=== PATIENT | male | born 1955 | race Caucasian/White ===

== ENCOUNTER 2023-12-04 16:40 | Inpatient (IN) ==
--- NOTE | 2023-12-04 17:00 | Emergency Department Note ---
Impression & Plan Syncope and collapse, Pulmonary embolism, Dizziness, Nausea ED Provider Note HISTORY OF PRESENT ILLNESS: Patient is a 68-year-old male presenting with syncope and collapse. Patient reports that he was outside getting ice cream with his family when he suddenly felt very lightheaded like he is going to pass out, the next thing he remembers he was on the ground and his was throwing water on his face to try to wake him up. Patient denies any chest pain or shortness of breath prior to the episode. He denies any bowel or bladder incontinence during the episode. He denies any chest pain or shortness of breath on arrival to the emergency department. He has a history of hyperlipidemia and is only on Lipitor. Denies any history of cardiac stents. Denies any anticoagulation or antiplatelet therapies. Denies any DVT or PE history. He denies any numbness or tingling in his extremities. He denies any abdominal pain. He does report nausea. Reports that since coming to, he has recurrent episodes of feeling nauseous and dizzy as if the room is spinning. ROS: as above PHYSICAL EXAM: Constitutional: Patient appears in no acute distress. HENT: Head: Normocephalic and atraumatic. Eyes: EOMI, PERRL Mouth/Throat: Mucous membranes moist. Neck: Trachea midline. Neck supple. Cervical collar in place. No midline cervical spine tenderness to palpation. Cardiovascular: RRR, No murmurs, rubs or gallops. Intact distal pulses. Pulmonary/Chest: No respiratory distress. Breath sounds clear and equal bilaterally. No wheezes or rales. No chest wall tenderness to palpation. Abdominal: Abdomen soft, no tenderness, rebound or guarding. Musculoskeletal: No edema, tenderness or deformity noted. Skin: Warm and dry. No rash, erythema, pallor or cyanosis Psychiatric: Appropriate mood and affect for situation. Neurological: Alert and keenly responsive. Facies symmetric. Able to raise eyebrows, close eyes, smile, puff mouth, stick out tongue, move tongue left and right and raise palate symmetrically. Able to shrug shoulders. PERRLA. SILT to forehead below eye and at jawline. Can hear soft noise bilaterally. Strength 5/5 in bilateral upper and lower extremities. SILT throughout bilateral upper and lower extremities. MDM: - Vitals signs stable - History obtained via patient. History as above. - Chronic conditions affecting care: HLD - Differential diagnoses include, but are not limited to: ACS; pneumonia; pulmonary embolism; dysrhythmia; electrolyte abnormality; dehydration - Order placed for continuous cardiac monitoring. At this time, monitor showed rate of 66 bpm with normal sinus rhythm, per my interpretation. - External medical records reviewed. - EKG interpreted by myself showed normal sinus rhythm. Rate 77 bpm. QT 396. Noted to have some T wave inversions in V1 to V3. - Laboratory workup interpreted by myself showed normal WBC; anemia (Hgb 13.1); normal PT/INR; stable electrolytes; normal troponin; normal CK; normal lipase; normal TSH; dimer elevated - CXR negative for pneumonia, per my interpretation - CT head wo contrast negative for acute pathology - CT cervical spine wo contrast negative for acute injury. - The patient's cervical collar was removed today. The patient's imaging was reviewed and the CT C-Spine was negative for acute injury. The patient was alert and oriented prior to his exam. On exam, he was non-tender to palpation midline and had full ROM without any neurologic deficits. The patient tolerated this procedure well. - Patient initially given 1L NS, 4 mg IV zofran and 25 mg PO antivert. However, he was still complaining of nausea and dizziness. 0.5 mg IV ativan ordered - Given elevated dimer in setting of syncope, CT PE was ordered. - CT PE showed segmental and subsegmental pulmonary emboli within the branch of the right upper, middle and lower lobe pulmonary arteries. - Heparin bolus and drip ordered. - Discussion was had with wrapper caser about patient's case and need for admission - Hospitalist, Dr. Dennis, consulted for admission - Patient admitted to [facility] service for further evaluation and management. I have personally spent 41 minutes of critical care time in the direct management of this patient. This includes bedside care, interpretation of diagnostic studies, and testing, discussion with consultants, patient, and family members, and other required patient management activities. This 41 minutes is in excess of all separately billable procedures. ASSESSMENT AND PLAN: Diagnosis: syncope and collapse; dizziness; nausea; pulmonary embolism Plan: admit Past Med/Surg History Problem List (Updated 12/04/23 @ 19:27 by Rubi Mcdaniel MD) Nausea (Acute) Dizziness (Acute) Pulmonary embolism (Acute) Syncope and collapse (Acute) Social History Smoking Status: Current some day smoker Tobacco Type: Cigars Feels Safe at Home: Yes Results & Data (ED) Vital Signs Vital Signs - 24 hr 12/04/23 16:48 12/04/23 16:48 12/04/23 16:55 Temperature 36.7 C Temperature Source Oral Pulse Rate 76 76 76 Pulse Rate [Left Finger] Respiratory Rate 28 H Respiratory Effort / Characteristics Non-Labored Spontaneous Respiratory Depth Normal Blood Pressure 129/71 Blood Pressure [Right Arm] Blood Pressure Mean 90 Blood Pressure Mean [Right Arm] Pulse Oximetry 94 94 Oxygen Delivery Method Room Air Room Air Sepsis Recent Fever Within 48 Hours No Sepsis New/Unexplained Change in Mental Status N/A Sepsis Action Taken by Nursing No Action Required 12/04/23 17:27 12/04/23 18:00 12/04/23 18:08 Temperature Temperature Source Pulse Rate Pulse Rate [Left Finger] 68 66 Respiratory Rate 24 20 Respiratory Effort / Characteristics Non-Labored Spontaneous Non-Labored Spontaneous Respiratory Depth Normal Normal Blood Pressure Blood Pressure [Right Arm] 138/68 141/81 H Blood Pressure Mean Blood Pressure Mean [Right Arm] 91 101 Pulse Oximetry 99 97 Oxygen Delivery Method Room Air Room Air Room Air Sepsis Recent Fever Within 48 Hours Sepsis New/Unexplained Change in Mental Status Sepsis Action Taken by Nursing Laboratory Data 12/04/23 16:59 12/04/23 16:59 Lab Results 12/04/23 Range/Units 16:59 WBC 9.05 (4.8-10.8) K/ul RBC 4.37 L (4.70-6.10) M/uL Hgb 13.1 L (14.0-18.0) g/dl Hct 40.1 L (42.0-52.0) % MCV 91.8 (80.0-100.0) fL MCH 30.0 (25.0-34.0) pg MCHC 32.7 (32.0-36.0) g/dL RDW Std Deviation 42.8 (36.4-46.3) fL RDW Coeff of Nba 12.7 (11.5-14.5) % Plt Count 227 (130-400) K/uL MPV 9.5 (9.4-12.4) fL Immature Gran % (Auto) 0.2 % Neut % (Auto) 49.0 % Lymph % (Auto) 38.8 % [place] % (Auto) 8.1 % Eos % (Auto) 3.6 % Baso % (Auto) 0.3 % Neut # (Auto) 4.43 (1.40-6.50) K/uL Lymph # (Auto) 3.51 H (1.20-3.40) K/uL [place] # (Auto) 0.73 H (0.11-0.59) K/uL Eos # (Auto) 0.33 (0.00-0.50) K/uL Baso # (Auto) 0.03 (0.00-0.20) K/uL Immature Gran # (Auto) 0.02 (0.01-0.20) K/uL PT 10.7 (9.0-12.0) Seconds INR 1.0 (0.9-1.1) D-Dimer 650 H* (0-500) ug/L FEU Sodium 138 (136-145) mmol/L Potassium 4.0 (3.5-5.1) mmol/L Chloride 106 (98-107) mmol/L Carbon Dioxide 24 (21-32) mmol/L Anion Gap 8 (3-11) BUN 25 H (6-23) mg/dl Creatinine 1.15 (0.6-1.4) mg/dl Est Cr Clr Drug Dosing 74.5 ml/min Est GFR ( Amer) 75.9 ml/min Est GFR (Non-Af Amer) 65.5 ml/min BUN/Creatinine Ratio 21.7 H (10-20) Glucose 128 H (70-99(Fasting)) mg/dl Calcium 8.6 (8.6-10.3) mg/dl Magnesium 1.9 (1.7-2.4) mg/dl Total Bilirubin 0.5 (0.2-1.0) mg/dl AST 20 (13-39) U/L ALT 17 (7-52) U/L Alkaline Phosphatase 64 (34-104) U/L Total Creatine Kinase 99 (30-223) U/L Troponin I High Sens 2.7 (0-20) pg/ml Total Protein 6.5 (6.0-8.3) gm/dl Albumin 3.9 (3.4-5.0) gm/dl Globulin 2.6 (2.5-4.0) gm/dl Albumin/Globulin Ratio 1.5 (0.9-2) Lipase 41 (11-82) U/L TSH 2.496 (0.300-4.500) uIu/ml Administered Medications Discontinued Medications Sodium Chloride (Nss) 1,000 mls @ 999 mls/hr IV .Q1H1M ARON Stop: 12/04/23 18:00 Last Infusion: 12/04/23 18:57 Dose: Infused Documented By: Admin: 12/04/23 17:08 Dose: 999 mls/hr Documented By: KATELIN Sodium Chloride (Nss) 1,000 mls @ 999 mls/hr IV .Q1H1M ONE Stop: 12/04/23 19:10 Last Admin: 12/04/23 18:21 Dose: 999 mls/hr Documented By: KATELIN Ioversol (Optiray 320 125ml) 117 ml IV ONCE ONE Stop: 12/04/23 18:41 Last Admin: 12/04/23 18:41 Dose: 117 ml Documented By: MICHAEL Meclizine HCl (Meclizine Hcl 25 Mg Tab) 25 mg PO NOW STA Stop: 12/04/23 18:11 Last Admin: 12/04/23 18:19 Dose: 25 mg Documented By: KATELIN Ondansetron HCl (Ondansetron Inj 2 Mg/Ml 2 Ml Vial) 4 mg IV NOW STA Stop: 12/04/23 16:57 Last Admin: 12/04/23 17:08 Dose: 4 mg Documented By: KATELIN Imaging Data Radiologist's Impression: Cervical Spine CT 12/04/23 16:56 CT SCAN OF THE CERVICAL SPINE CLINICAL HISTORY: Syncope. COMPARISON STUDY: No priors. TECHNIQUE: CT scan of the cervical spine is performed from the skull base to the upper thoracic spine. Images are reviewed in the axial, sagittal, and coronal planes. IV contrast was not administered for this examination. A dose lowering technique was utilized adhering to the principles of ALARA. FINDINGS: Skeletal structures: The skeletal structures are well mineralized. There is no evidence of fracture or subluxation involving the cervical spine. Vertebral body height and alignment are maintained. There is straightening of the cervical lordosis. Anterior osteophytes are seen throughout. The odontoid process and lateral masses are intact. The atlantoaxial articulation is preserved noting productive degenerative change. The spinous processes appear intact. There is mild/moderate multilevel cervical spondylosis. Uncovertebral and facet arthropathy contribute to neural foraminal narrowing at several levels. Intervertebral discs: The disc spaces are maintained. Central canal: Widely patent. Soft tissues: The prevertebral and paraspinous soft tissues are within normal limits. Calvarium: The visualized calvarium at the skull base appears intact. Brain parenchyma: Partially visualized brain parenchyma at the skull base is within normal limits. Sinuses and mastoids: There is mucosal thickening and an air-fluid level in the left maxillary antrum. Trace mucosal thickening is also seen in the sphenoid and right maxillary sinuses. The mastoid air cells are well pneumatized. Lung apices: Clear as visualized. IMPRESSION: There is no evidence of cervical spine fracture or subluxation. ACT 112: Negative or not required by law. Electronically signed by: Laureano Holguin M.D. 12/04/2023 5:48 PM Chest X-Ray 12/04/23 16:56 SINGLE VIEW CHEST CLINICAL HISTORY: Syncope FINDINGS: An AP, portable, upright chest radiograph is obtained. No prior studies are available for comparison at the time of dictation. The heart is enlarged. There is prominence pulmonary vascular congestion. There is elevation of the right diaphragm and bibasilar atelectasis. No large pleural effusion or pneumothorax is seen. The bony thorax is grossly intact. IMPRESSION: Cardiomegaly with pulmonary vascular congestion. ACT 112: Negative or not required by law. Electronically signed by: Laureano Holguin M.D. 12/04/2023 6:[address] 12/04/23 16:56 CT SCAN OF THE BRAIN WITHOUT IV CONTRAST CLINICAL HISTORY: Syncope COMPARISON STUDY: No priors. TECHNIQUE: Unenhanced axial CT scan of the brain is performed from the vertex to the skull base. A dose lowering technique was utilized adhering to the principles of ALARA. CT DOSE: 1189.79 mGy.cm FINDINGS: Brain parenchyma: There is minimal microangiopathic change. A 3 cm subarachnoid cyst is incidentally noted in the anterior left temporal fossa. There is no hemorrhage, mass effect, or evidence of acute territorial ischemia by CT criteria. Rodriguez-white matter differentiation is preserved. No extra-axial fluid collection is seen. Ventricles, sulci, cisterns: Normal in configuration. Intracranial vasculature: There is atherosclerotic calcification of the cavernous carotid arteries. Calvarium: Unremarkable. Sinuses and mastoids: There is evidence of previous paranasal sinus surgery. There is an air-fluid level in the partially visualized left maxillary antrum. Moderate mucosal thickening is noted in the ethmoid sinuses and the left frontal sinus. Trace mucosal thickening is seen in the left sphenoid sinus. The mastoid air cells are well pneumatized. Orbits: The bony orbits are grossly intact. IMPRESSION: There is no hemorrhage, mass effect, or evidence of acute territorial ischemia by CT criteria. ACT 112: Negative or not required by law. Electronically signed by: Laureano Holguin M.D. 12/04/2023 5:36 PM Chest CTA 12/04/23 18:10 CT ANGIOGRAM OF THE CHEST CLINICAL HISTORY: Syncope. COMPARISON STUDY: Chest x-ray dated 12/04/2023. TECHNIQUE: Following the IV administration of 117 cc of Optiray 320, CT angiogram of the chest was performed from the upper abdomen to the thoracic inlet utilizing the pulmonary embolus protocol. Images are reviewed in the axial, sagittal, and coronal planes. 3-D MIPS images are created and assessed. IV contrast was administered without complication. A dose lowering technique was utilized adhering to the principles of ALARA. CT DOSE: 873.18 mGy.cm FINDINGS: Thyroid: Imaged portions of the thyroid gland are normal in size and attenuation. Thoracic aorta: The thoracic aorta is normal in caliber and demonstrates bovine variant arch anatomy. No dissection is seen. Pulmonary vasculature: The pulmonary trunk is normal in caliber. There are subsegmental pulmonary emboli within a branch of the right middle lobe pulmonary artery seen on image #102. Segmental pulmonary emboli are seen within a branch of the right upper lobe pulmonary artery on image #141. Subsegmental pulmonary emboli are seen within branches of the right lower lobe pulmonary artery. No left-sided pulmonary emboli are clearly identified. Heart: The heart is enlarged and without pericardial effusion. Lungs and pleural spaces: Evaluation of the lung parenchyma is degraded by motion artifact. Dependent atelectasis is seen in both lungs. There is no airspace consolidation typical for pneumonia. No pleural effusion is identified. The trachea and central airways are clear. Mediastinum: There is no mediastinal lymphadenopathy. Brittany: Clear. Axillae: There is no axillary lymphadenopathy. Upper abdomen: There is a small hiatal hernia. Partially visualized upper abdominal viscera is otherwise within normal limits. Skeletal structures: No lytic or blastic bony lesions are seen. IMPRESSION: 1. Segmental and subsegmental pulmonary emboli are seen within branches of the right upper, middle, and lower lobe pulmonary arteries as above. 2. Cardiomegaly. 3. No airspace consolidation or pleural effusion is identified. 4. Additional findings as above. ACT 112: Negative or not required by law. Electronically signed by: Laureano Holguin M.D. 12/04/2023 6:51 PM Discharge Plan Visit Data Chief Complaint: Syncope Stated Complaint: SYNCOPAL EPISODE, HIT HEAD, DIZZY, DIAPHORETIC ED Provider: Rubi Mcdaniel Discharge Problem: Syncope and collapse, Pulmonary embolism, Dizziness, Nausea Forms Stand Alone Forms: [facility] Referrals Referrals: PCP,NO [Primary Care Provider] -
[2023-12-04] MEDS: ONDANSETRON INJ 2 MG/ML 2 ML VIAL IV STA (17:08)
[2023-12-04] MEDS: SODIUM CHLORIDE 0.9% 1,000 ML IV SCH (17:08)
[2023-12-04 17:16] LABS: Basophils # (auto) 0.03 K/uL (0.00-0.20); Basophils % (auto) 0.3 %; Eosinophils # (auto) 0.33 K/uL (0.00-0.50); Eosinophils % (auto) 3.6 %; Hematocrit (blood only) 40.1 % (42.0-52.0); Hemoglobin 13.1 g/dl (14.0-18.0); Immature Granulocytes # (auto) 0.02 K/uL (0.01-0.20); Immature Granulocytes % (auto) 0.2 %; Lymphocytes # (auto) 3.51 K/uL (1.20-3.40); Lymphocytes % (auto) 38.8 %; Mean Corpuscular Hgb Conc 32.7 g/dL (32.0-36.0); Mean Corpuscular Volume 91.8 fL (80.0-100.0); Mean Platelet Volume 9.5 fL (9.4-12.4); Monocytes # (auto) 0.73 K/uL (0.11-0.59); Monocytes % (auto) 8.1 %; Neutrophils # (auto) 4.43 K/uL (1.40-6.50); Platelet Count 227 K/uL (130-400); RDW Coefficient of Variation 12.7 % (11.5-14.5); RDW Standard Deviation 42.8 fL (36.4-46.3); Red Blood Count 4.37 M/uL (4.70-6.10); White Blood Count 9.05 K/ul (4.8-10.8)
[2023-12-04 17:33] LABS: Albumin Globulin Ratio 1.5 (0.9-2); Albumin Level 3.9 gm/dl (3.4-5.0); BUN Creatinine Ratio 21.7 (10-20); Bilirubin,Total 0.5 mg/dl (0.2-1.0); Calcium 8.6 mg/dl (8.6-10.3); Creatinine Clr Calc Pharmacy 74.5 ml/min; Est GFR (African American) 75.9 ml/min; Est GFR (Non-African American) 65.5 ml/min; Globulin 2.6 gm/dl (2.5-4.0); Magnesium 1.9 mg/dl (1.7-2.4); Total Protein 6.5 gm/dl (6.0-8.3)
[2023-12-04 17:38] LABS: Troponin I High Sensitivity 2.7 pg/ml (0-20)
--- NOTE | 2023-12-04 17:39 | CT Scan Report ---
CT SCAN OF THE BRAIN WITHOUT IV CONTRAST CLINICAL HISTORY: Syncope COMPARISON STUDY: No priors. TECHNIQUE: Unenhanced axial CT scan of the brain is performed from the vertex to the skull base. A d ose lowering technique was utilized adhering to the principles of ALARA. CT DOSE: 1189.79 mGy.cm FINDINGS: Brain parenchyma: There is minimal microangiopathic change. A 3 cm subarachnoid cyst is incidentally noted in the anterior left temporal fossa. There is no hemorrhage, mass effect, or evidence of acute territorial ischemia by CT criteria. Rodriguez-white matter differentiation is preserved. No extra-axial f luid collection is seen. Ventricles, sulci, cisterns: Normal in configuration. Intracranial vasculature: There is atherosclerotic calcification of the cavernous carotid arteries. Calvarium: Unremarkable. Sinuses and mastoids: There is evidence of previous paranasal sinus surgery. There is an air-fluid le iftikhar in the partially visualized left maxillary antrum. Moderate mucosal thickening is noted in the et hmoid sinuses and the left frontal sinus. Trace mucosal thickening is seen in the left sphenoid sinus . The mastoid air cells are well pneumatized. Orbits: The bony orbits are grossly intact. IMPRESSION: There is no hemorrhage, mass effect, or evidence of acute territorial ischemia by CT reinaldo weiss. ACT 112: Negative or not required by law. Electronically signed by: Laureano Holguin M.D. 12/04/2023 5:36 PM
[2023-12-04 17:47] LABS: Thyroid Stimulating Hormone 2.496 uIu/ml (0.300-4.500)
[2023-12-04 17:49] LABS: Prothrombin Time 10.7 Seconds (9.0-12.0)
--- NOTE | 2023-12-04 17:50 | CT Scan Report ---
CT SCAN OF THE CERVICAL SPINE CLINICAL HISTORY: Syncope. COMPARISON STUDY: No priors. TECHNIQUE: CT scan of the cervical spine is performed from the skull base to the upper thoracic spine . Images are reviewed in the axial, sagittal, and coronal planes. IV contrast was not administered fo r this examination. A dose lowering technique was utilized adhering to the principles of ALARA. FINDINGS: Skeletal structures: The skeletal structures are well mineralized. There is no evidence of fracture o r subluxation involving the cervical spine. Vertebral body height and alignment are maintained. There is straightening of the cervical lordosis. Anterior osteophytes are seen throughout. The odontoid pr ocess and lateral masses are intact. The atlantoaxial articulation is preserved noting productive deg enerative change. The spinous processes appear intact. There is mild/moderate multilevel cervical spo ndylosis. Uncovertebral and facet arthropathy contribute to neural foraminal narrowing at several lev els. Intervertebral discs: The disc spaces are maintained. Central canal: Widely patent. Soft tissues: The prevertebral and paraspinous soft tissues are within normal limits. Calvarium: The visualized calvarium at the skull base appears intact. Brain parenchyma: Partially visualized brain parenchyma at the skull base is within normal limits. Sinuses and mastoids: There is mucosal thickening and an air-fluid level in the left maxillary antrum . Trace mucosal thickening is also seen in the sphenoid and right maxillary sinuses. The mastoid air cells are well pneumatized. Lung apices: Clear as visualized. IMPRESSION: There is no evidence of cervical spine fracture or subluxation. ACT 112: Negative or not required by law. Electronically signed by: Laureano Holguin M.D. 12/04/2023 5:48 PM
[2023-12-04 18:03] LABS: D Dimer 650 ug/L FEU (0-500)
[2023-12-04] MEDS: MECLIZINE HCL 25 MG TAB PO STA (18:19)
[2023-12-04] MEDS: SODIUM CHLORIDE 0.9% 1,000 ML IV ONE (18:21)
[2023-12-04] MEDS: OPTIRAY 320 125ml IV ONE (18:41)
--- NOTE | 2023-12-04 18:53 | XRay Report ---
SINGLE VIEW CHEST CLINICAL HISTORY: Syncope FINDINGS: An AP, portable, upright chest radiograph is obtained. No prior studies are available for c omparison at the time of dictation. The heart is enlarged. There is prominence pulmonary vascular con gestion. There is elevation of the right diaphragm and bibasilar atelectasis. No large pleural effusi on or pneumothorax is seen. The bony thorax is grossly intact. IMPRESSION: Cardiomegaly with pulmonary vascular congestion. ACT 112: Negative or not required by law. Electronically signed by: Laureano Holguin M.D. 12/04/2023 6:51 PM
--- NOTE | 2023-12-04 18:53 | CT Scan Report ---
CT ANGIOGRAM OF THE CHEST CLINICAL HISTORY: Syncope. COMPARISON STUDY: Chest x-ray dated 12/04/2023. TECHNIQUE: Following the IV administration of 117 cc of Optiray 320, CT angiogram of the chest was pe rformed from the upper abdomen to the thoracic inlet utilizing the pulmonary embolus protocol. Images are reviewed in the axial, sagittal, and coronal planes. 3-D MIPS images are created and assessed. I V contrast was administered without complication. A dose lowering technique was utilized adhering to the principles of ALARA. CT DOSE: 873.18 mGy.cm FINDINGS: Thyroid: Imaged portions of the thyroid gland are normal in size and attenuation. Thoracic aorta: The thoracic aorta is normal in caliber and demonstrates bovine variant arch anatomy. No dissection is seen. Pulmonary vasculature: The pulmonary trunk is normal in caliber. There are subsegmental pulmonary emb lori within a branch of the right middle lobe pulmonary artery seen on image #102. Segmental pulmonary emboli are seen within a branch of the right upper lobe pulmonary artery on image #141. Subsegmental pulmonary emboli are seen within branches of the right lower lobe pulmonary artery. No left-sided pu lmonary emboli are clearly identified. Heart: The heart is enlarged and without pericardial effusion. Lungs and pleural spaces: Evaluation of the lung parenchyma is degraded by motion artifact. Dependent atelectasis is seen in both lungs. There is no airspace consolidation typical for pneumonia. No pleu ral effusion is identified. The trachea and central airways are clear. Mediastinum: There is no mediastinal lymphadenopathy. Brittany: Clear. Axillae: There is no axillary lymphadenopathy. Upper abdomen: There is a small hiatal hernia. Partially visualized upper abdominal viscera is otherw ise within normal limits. Skeletal structures: No lytic or blastic bony lesions are seen. IMPRESSION: 1. Segmental and subsegmental pulmonary emboli are seen within branches of the right upper, middle, a nd lower lobe pulmonary arteries as above. 2. Cardiomegaly. 3. No airspace consolidation or pleural effusion is identified. 4. Additional findings as above. ACT 112: Negative or not required by law. Electronically signed by: Laureano Holguin M.D. 12/04/2023 6:51 PM
[2023-12-04] MEDS: HEPARIN SODIUM/DEXTROSE 25,000 UNITS/500 ML BAG IV SCH (19:36)
[2023-12-04] MEDS: HEPARIN SOD (PORCINE) 1000 UNIT/ML IV ONE (19:37)
--- NOTE | 2023-12-04 19:40 | History & Physical Report ---
Date of Service December 04, 2023 Assessment & Plan (1) Pulmonary embolism: Plan: Patient with segmental and subsegmental PEs in RUL/RML/RLL. He did have a syncopal event prior to arrival - possibly secondary to PE. No saddle. No evidence of heart strain noted on CT imaging. Presently hemodynamically stable with HR of 75, BP of 151/102. Adequate oxygenation on room air. PESI Score = 77 (Class II, Low risk). Shock index= 0.5, normal. No prior history of VTE. No obvious risk factors aside from recent drive from [place]. -Admit to PCU -Continue heparin gtt -Transition to NOAC in AM Patient is scheduled to fly to [place] next week 12/10/23 - encouraged him to cancel this trip due to recent PE (2) Syncope and collapse: Plan: Patient with syncope, head trauma - not on blood thinners or antiplatelets. He did have a very brief prodrome of dizziness and feeling warm/flushed. PEs as above - not certain that this was the cause of his syncopal event. Labs do suggest some degree of dehydration with elevated urine SG, and ketones as well as BUN. -Telemetry monitoring -Check 2D echo -Fall precautions Plan CHRONIC MEDICAL CONDITIONS: Hyperlipidemia - chronic, stable -Continue Atorvastatin 10mg po daily F/E/N - s/p 2L NSS in the ER, saline lock, electrolytes WNL, Regular diet as tolerated Ppx - Heparin gtt for treatment of PE Code - Full per discussion with patient Dispo - Admit to PCU History of Present Illness Chief Complaint: syncope Primary Care Provider: NO PCP 68yo male with history of hyperlipidemia presenting with syncope. [place] [employer] [place] this [place] when he became acutely dizzy and hot and fell backwards onto the grass, striking his posterior head. He was out several moments then regained consciousness. He denies fever, chills, chest pain, palpitations, cough, SOB, abdominal pain, diarrhea or constipation. He does have some nausea with vomiting as well as some blurry vision and dizziness associated with positional changes and head movement which is slightly improved from earlier. Imaging and workup as below. Labs revealed elevated D-dimer at 650 and CTA of the chest with segmental and subsegmental PE within the branches of the RUL, RML and RLL pulmonary arteries. Patient is active and independent. He swims 1 mile 3 times weekly. He has no prior history of VTE. No known family history of VTE or hypercoagulability. No recent surgery or trauma. He did drive two hours from [place] days ago otherwise no extended periods of immobility. No leg pain or cramping. He is UTD with his colonoscopies. In the ER he is afebrile, HD stable ER Course: Heparin 7000u bolus and drip Meclizine 25mg PO Zofran 4mg IV NSS x 2L Allergies Allergy/AdvReac Type Severity Reaction Status Date / Time No Known Allergies Allergy Unverified 12/04/23 19:50 Home Medications Medication Instructions Recorded Confirmed Type acetaminophen 500 mg tablet 500 mg PO Q6H PRN Pain 12/04/23 12/04/23 History atorvastatin 10 mg tablet 10 mg PO HS 12/04/23 12/04/23 History Past Med/Surg History Problem List (Updated 12/04/23 @ 21:24 by Kristi Dennis DO) Nausea (Acute) Dizziness (Acute) Pulmonary embolism (Acute) Syncope and collapse (Acute) Medical History (Updated 12/04/23 @ 21:24 by Kristi Dennis DO) Hyperlipidemia Surgical History (Updated 12/04/23 @ 21:25 by Kristi Dennis DO) History of wisdom tooth extraction History of sinus surgery Family History (Updated 12/04/23 @ 21:25 by Kristi Dennis DO) Other Cancer Social History (Updated 12/04/23 @ 21:25 by Kristi Dennis DO) Smoking Status: Current some day smoker Tobacco Type: Cigars Hx Alcohol Use: Yes (social use) Hx Substance Use: No Feels Safe at Home: Yes Review of Systems 2 Review of Systems: All systems reviewed & are unremarkable except as noted in HPI & below Physical Exam Physical Exam: General: patient resting comfortably, NAD, non-toxic in appearance, AA&O x 4 Skin: warm, dry, intact, no rashes or lesions HEENT: NC/AT, PERRL, EOMI, anicteric sclera, conjunctiva without injection, external ear normal to inspection and nontender, nares patent, moist mucus membranes, dentition intact, no oropharyngeal lesions, neck supple, trachea midline, no LAD, no thyromegaly, no JVD, no nystagmus, no posterior neck pain Heart: +S1/S2, regular with respiratory variation, no m/r/g Lungs: equal air entry bilaterally, no rales/rhonchi/wheezes Abd: +BS, soft, NT/ND, no masses/organomegaly/ascites Ext: warm, 2+ pulses in UE/LE bilaterally, no clubbing/cyanosis or edema Neuro: nonfocal, patient AA&O x 4, speech intact, no facial droop, moving all extremities on command with equal strength 5/5 Results & Data Results & Data Vital Signs (Past 12 Hours) Vital Signs Temp Pulse Pulse Resp BP BP Pulse Ox 12/04/23 18:08 66 20 141/81 H 97 12/04/23 18:00 68 24 138/68 99 12/04/23 17:27 12/04/23 16:55 76 12/04/23 16:48 76 94 12/04/23 16:48 36.7 C 76 28 H 129/71 94 O2 Del Method 12/04/23 18:08 Room Air 12/04/23 18:00 Room Air 12/04/23 17:27 Room Air 12/04/23 16:55 12/04/23 16:48 Room Air 12/04/23 16:48 Room Air Laboratory Results Laboratory Results WBC 9.05 K/ul (4.8-10.8) 12/04/23 16:59 RBC 4.37 M/uL (4.70-6.10) L 12/04/23 16:59 Hgb 13.1 g/dl (14.0-18.0) L 12/04/23 16:59 Hct 40.1 % (42.0-52.0) L 12/04/23 16:59 MCV 91.8 fL (80.0-100.0) 12/04/23 16:59 MCH 30.0 pg (25.0-34.0) 12/04/23 16:59 MCHC 32.7 g/dL (32.0-36.0) 12/04/23 16:59 RDW Std Deviation 42.8 fL (36.4-46.3) 12/04/23 16:59 RDW Coeff of Nba 12.7 % (11.5-14.5) 12/04/23 16:59 Plt Count 227 K/uL (130-400) 12/04/23 16:59 MPV 9.5 fL (9.4-12.4) 12/04/23 16:59 Immature Gran % (Auto) 0.2 % 12/04/23 16:59 Neut % (Auto) 49.0 % 12/04/23 16:59 Lymph % (Auto) 38.8 % 12/04/23 16:59 Otero % (Auto) 8.1 % 12/04/23 16:59 Eos % (Auto) 3.6 % 12/04/23 16:59 Baso % (Auto) 0.3 % 12/04/23 16:59 Neut # (Auto) 4.43 K/uL (1.40-6.50) 12/04/23 16:59 Lymph # (Auto) 3.51 K/uL (1.20-3.40) H 12/04/23 16:59 Otero # (Auto) 0.73 K/uL (0.11-0.59) H 12/04/23 16:59 Eos # (Auto) 0.33 K/uL (0.00-0.50) 12/04/23 16:59 Baso # (Auto) 0.03 K/uL (0.00-0.20) 12/04/23 16:59 Immature Gran # (Auto) 0.02 K/uL (0.01-0.20) 12/04/23 16:59 PT 10.7 Seconds (9.0-12.0) 12/04/23 16:59 INR 1.0 (0.9-1.1) 12/04/23 16:59 D-Dimer 650 ug/L FEU (0-500) H* 12/04/23 16:59 Sodium 138 mmol/L (136-145) 12/04/23 16:59 Potassium 4.0 mmol/L (3.5-5.1) 12/04/23 16:59 Chloride 106 mmol/L (98-107) 12/04/23 16:59 Carbon Dioxide 24 mmol/L (21-32) 12/04/23 16:59 Anion Gap 8 (3-11) 12/04/23 16:59 BUN 25 mg/dl (6-23) H 12/04/23 16:59 Creatinine 1.15 mg/dl (0.6-1.4) 12/04/23 16:59 Est Cr Clr Drug Dosing 74.5 ml/min 12/04/23 16:59 Est GFR ( Amer) 75.9 ml/min 12/04/23 16:59 Est GFR (Non-Af Amer) 65.5 ml/min 12/04/23 16:59 BUN/Creatinine Ratio 21.7 (10-20) H 12/04/23 16:59 Glucose 128 mg/dl (70-99(Fasting)) H 12/04/23 16:59 Calcium 8.6 mg/dl (8.6-10.3) 12/04/23 16:59 Magnesium 1.9 mg/dl (1.7-2.4) 12/04/23 16:59 Total Bilirubin 0.5 mg/dl (0.2-1.0) 12/04/23 16:59 AST 20 U/L (13-39) 12/04/23 16:59 ALT 17 U/L (7-52) 12/04/23 16:59 Alkaline Phosphatase 64 U/L (34-104) 12/04/23 16:59 Total Creatine Kinase 99 U/L (30-223) 12/04/23 16:59 Troponin I High Sens 2.7 pg/ml (0-20) 12/04/23 16:59 Total Protein 6.5 gm/dl (6.0-8.3) 12/04/23 16:59 Albumin 3.9 gm/dl (3.4-5.0) 12/04/23 16:59 Globulin 2.6 gm/dl (2.5-4.0) 12/04/23 16:59 Albumin/Globulin Ratio 1.5 (0.9-2) 12/04/23 16:59 Lipase 41 U/L (11-82) 12/04/23 16:59 TSH 2.496 uIu/ml (0.300-4.500) 12/04/23 16:59 Urine Color Yellow 12/04/23 20:53 Urine Appearance Clear (Clear) 12/04/23 20:53 Urine pH 6.0 (4.5-7.5) 12/04/23 20:53 Ur Specific [place] 1.036 (1.000-1.030) H 12/04/23 20:53 Urine Protein Negative (Negative) 12/04/23 20:53 Urine Glucose (UA) Negative (Negative) 12/04/23 20:53 Urine Ketones 1+ (Negative) H 12/04/23 20:53 Urine Blood Negative (Negative) 12/04/23 20:53 Urine Nitrite Negative (Negative) 12/04/23 20:53 Urine Bilirubin Negative (Negative) 12/04/23 20:53 Urine Urobilinogen Negative (Negative) 12/04/23 20:53 Ur Leukocyte Esterase Negative (Negative) 12/04/23 20:[address] 12/04/23 16:56 CT SCAN OF THE CERVICAL SPINE CLINICAL HISTORY: Syncope. COMPARISON STUDY: No priors. TECHNIQUE: CT scan of the cervical spine is performed from the skull base to the upper thoracic spine. Images are reviewed in the axial, sagittal, and coronal planes. IV contrast was not administered for this examination. A dose lowering technique was utilized adhering to the principles of ALARA. FINDINGS: Skeletal structures: The skeletal structures are well mineralized. There is no evidence of fracture or subluxation involving the cervical spine. Vertebral body height and alignment are maintained. There is straightening of the cervical lordosis. Anterior osteophytes are seen throughout. The odontoid process and lateral masses are intact. The atlantoaxial articulation is preserved noting productive degenerative change. The spinous processes appear intact. There is mild/moderate multilevel cervical spondylosis. Uncovertebral and facet arthropathy contribute to neural foraminal narrowing at several levels. Intervertebral discs: The disc spaces are maintained. Central canal: Widely patent. Soft tissues: The prevertebral and paraspinous soft tissues are within normal limits. Calvarium: The visualized calvarium at the skull base appears intact. Brain parenchyma: Partially visualized brain parenchyma at the skull base is within normal limits. Sinuses and mastoids: There is mucosal thickening and an air-fluid level in the left maxillary antrum. Trace mucosal thickening is also seen in the sphenoid and right maxillary sinuses. The mastoid air cells are well pneumatized. Lung apices: Clear as visualized. IMPRESSION: There is no evidence of cervical spine fracture or subluxation. ACT 112: Negative or not required by law. Electronically signed by: Laureano Holguin M.D. 12/04/2023 5:48 PM Chest X-Ray 12/04/23 16:56 SINGLE VIEW CHEST CLINICAL HISTORY: Syncope FINDINGS: An AP, portable, upright chest radiograph is obtained. No prior studies are available for comparison at the time of dictation. The heart is enlarged. There is prominence pulmonary vascular congestion. There is elevation of the right diaphragm and bibasilar atelectasis. No large pleural effusion or pneumothorax is seen. The bony thorax is grossly intact. IMPRESSION: Cardiomegaly with pulmonary vascular congestion. ACT 112: Negative or not required by law. Electronically signed by: Laureano Holguin M.D. 12/04/2023 6:[address] 12/04/23 16:56 CT SCAN OF THE BRAIN WITHOUT IV CONTRAST CLINICAL HISTORY: Syncope COMPARISON STUDY: No priors. TECHNIQUE: Unenhanced axial CT scan of the brain is performed from the vertex to the skull base. A dose lowering technique was utilized adhering to the principles of ALARA. CT DOSE: 1189.79 mGy.cm FINDINGS: Brain parenchyma: There is minimal microangiopathic change. A 3 cm subarachnoid cyst is incidentally noted in the anterior left temporal fossa. There is no hemorrhage, mass effect, or evidence of acute territorial ischemia by CT criteria. Rodriguez-white matter differentiation is preserved. No extra-axial fluid collection is seen. Ventricles, sulci, cisterns: Normal in configuration. Intracranial vasculature: There is atherosclerotic calcification of the cavernous carotid arteries. Calvarium: Unremarkable. Sinuses and mastoids: There is evidence of previous paranasal sinus surgery. There is an air-fluid level in the partially visualized left maxillary antrum. Moderate mucosal thickening is noted in the ethmoid sinuses and the left frontal sinus. Trace mucosal thickening is seen in the left sphenoid sinus. The mastoid air cells are well pneumatized. Orbits: The bony orbits are grossly intact. IMPRESSION: There is no hemorrhage, mass effect, or evidence of acute territorial ischemia by CT criteria. ACT 112: Negative or not required by law. Electronically signed by: Laureano Holguin M.D. 12/04/2023 5:36 PM Chest CTA 12/04/23 18:10 CT ANGIOGRAM OF THE CHEST CLINICAL HISTORY: Syncope. COMPARISON STUDY: Chest x-ray dated 12/04/2023. TECHNIQUE: Following the IV administration of 117 cc of Optiray 320, CT angiogram of the chest was performed from the upper abdomen to the thoracic inlet utilizing the pulmonary embolus protocol. Images are reviewed in the axial, sagittal, and coronal planes. 3-D MIPS images are created and assessed. IV contrast was administered without complication. A dose lowering technique was utilized adhering to the principles of ALARA. CT DOSE: 873.18 mGy.cm FINDINGS: Thyroid: Imaged portions of the thyroid gland are normal in size and attenuation. Thoracic aorta: The thoracic aorta is normal in caliber and demonstrates bovine variant arch anatomy. No dissection is seen. Pulmonary vasculature: The pulmonary trunk is normal in caliber. There are subsegmental pulmonary emboli within a branch of the right middle lobe pulmonary artery seen on image #102. Segmental pulmonary emboli are seen within a branch of the right upper lobe pulmonary artery on image #141. Subsegmental pulmonary emboli are seen within branches of the right lower lobe pulmonary artery. No left-sided pulmonary emboli are clearly identified. Heart: The heart is enlarged and without pericardial effusion. Lungs and pleural spaces: Evaluation of the lung parenchyma is degraded by motion artifact. Dependent atelectasis is seen in both lungs. There is no airspace consolidation typical for pneumonia. No pleural effusion is identified. The trachea and central airways are clear. Mediastinum: There is no mediastinal lymphadenopathy. Brittany: Clear. Axillae: There is no axillary lymphadenopathy. Upper abdomen: There is a small hiatal hernia. Partially visualized upper abdominal viscera is otherwise within normal limits. Skeletal structures: No lytic or blastic bony lesions are seen. IMPRESSION: 1. Segmental and subsegmental pulmonary emboli are seen within branches of the right upper, middle, and lower lobe pulmonary arteries as above. 2. Cardiomegaly. 3. No airspace consolidation or pleural effusion is identified. 4. Additional findings as above. ACT 112: Negative or not required by law. Electronically signed by: Laureano Holguin M.D. 12/04/2023 6:51 PM ECG Additional Comments: EKG per my interpretation reveals NSR at 77 bpm, JA=147, QRS=86, SOl=815, some T abnormalities in anterior leads Code Status & VTE Plan VTE Prophylaxis Plan VTE Prophylaxis will be ordered: Yes PG Care Time/CCT Total # of Minutes Spent Total Time Spent with Patient: Total time spent is greater than 50% in coordination of care (as documented) at patient's floor/unit and/or counseling patient: Coding Level of Care Code 06690 INT INP/OBS CARE MIN Diagnoses Pulmonary embolism I26.99 Syncope and collapse R55
[2023-12-04] MEDS: Heparin IV Adult Wt-Based Standard w/ INITIAL Bolus Protocol IV STA (19:41)
[2023-12-04] MEDS: LORazepam 1 MG/1 ML SYR ED Inj Use IV STA ×2 (19:42)
[2023-12-04] MEDS ORDERED: HEPARIN SOD (PORCINE) 1000 UNIT/ML IV ONE (20:15)
[2023-12-04 21:14] LABS: Appearance Urine Clear (Clear); Bilirubin Urine Negative (Negative); Blood Urine Negative (Negative); Color Urine Yellow; Glucose Urine UA Negative (Negative); Ketones Urine 1+ (Negative); Leukocyte Esterase Urine Negative (Negative); Nitrite Urine Negative (Negative); Protein Urine Negative (Negative); Specific Gravity Urine 1.036 (1.000-1.030); Urobilinogen Urine Negative (Negative)
[2023-12-04] MEDS ORDERED: ACETAMINOPHEN 325 MG TAB PO PRN (21:42)
[2023-12-04] MEDS ORDERED: ONDANSETRON INJ 2 MG/ML 2 ML VIAL IV PRN (21:42)
[2023-12-05 02:30] LABS: ANTI-Xa, UFH(UnfractionatedHep 0.73 IU/ml (0.3-0.7)
[2023-12-05 06:26] LABS: Hematocrit (blood only) 38.2 % (42.0-52.0); Hemoglobin 12.6 g/dl (14.0-18.0); Mean Corpuscular Hemoglobin 30.3 pg (25.0-34.0); Mean Corpuscular Volume 91.8 fL (80.0-100.0); Mean Platelet Volume 9.9 fL (9.4-12.4); Platelet Count 195 K/uL (130-400); RDW Coefficient of Variation 12.6 % (11.5-14.5); RDW Standard Deviation 42.1 fL (36.4-46.3); Red Blood Count 4.16 M/uL (4.70-6.10); White Blood Count 7.16 K/ul (4.8-10.8)
[2023-12-05 06:33] LABS: Albumin Level 3.6 gm/dl (3.4-5.0); BUN Creatinine Ratio 17.3 (10-20); Bilirubin Direct 0.2 mg/dl (0-0.2); Bilirubin,Total 0.8 mg/dl (0.2-1.0); Calcium 8.3 mg/dl (8.6-10.3); Creatinine Clr Calc Pharmacy 88.3 ml/min; Est GFR (African American) 92.1 ml/min; Est GFR (Non-African American) 79.5 ml/min; Potassium 3.8 mmol/L (3.5-5.1); Total Protein 5.8 gm/dl (6.0-8.3)
[2023-12-05 09:12] LABS: ANTI-Xa, UFH(UnfractionatedHep 0.52 IU/ml (0.3-0.7)
[2023-12-05] MEDS: ATORVASTATIN 10 MG TAB PO SCH ×2 (10:12→21:16)
[2023-12-05] MEDS ORDERED: Nursing to Pharmacy Communication SCH (10:15)
--- NOTE | 2023-12-05 11:11 | Hospitalist Progress Note ---
Date of Service December 05, 2023 Assessment & Plan (1) Pulmonary embolism: Plan: Appears to be provoked from a prolonged car ride from [place]. Cardiac echo is pending along with venous Doppler studies of both legs. Heparin drip has been switched over to Eliquis. Fortunately he is not requiring oxygen. He does not need a hypercoagulable workup at this time since he has no previous history of venous thrombosis. (2) Syncope and collapse: Plan: The patient had a syncopal episode probably at the time of the PE. He struck his head but there was no significant findings on his CT scan. He does have transient dizziness with movement but no overt vertigo. Supportive care at this time. (3) Hyperlipidemia: Plan: Stable. Continue statin therapy Plan Hopeful discharge to home tomorrow, December 05 Admission and Anticipated Discharge Date Admission Date: December 04, 2023 Subjective Alert and oriented. Fortunately, he is not requiring any oxygen. He does have some dizziness with movement from the closed head injury suffered when he had a syncopal episode and fell. Heparin drip has been switched over to oral Eliquis. Venous Doppler studies of both legs pending along with cardiac echo. This appears to be a provoked PE from prolonged driving from [place] to the [place]. Hopefully he can go home tomorrow, December 05 Review of Systems 2 Review of Systems: Constitutional-no fever or chills. Transient dizziness with head movement ENT-no blurred vision, no double vision, no epistaxis, no sore throat Respiratory-no cough, no wheezing, no shortness of breath Cardiac-no palpitations, no chest pain, no syncope GI-no nausea, vomiting, diarrhea, melena, hematochezia -no urinary retention, no urinary incontinence, no dysuria, no hematuria Musculoskeletal-no joint pain, no muscle tenderness Skin-no bruising, no rashes, no pruritus Neuro-no isolated weakness, no paresthesia. Transient dizziness with head movement Psych-no depression, no anxiety Physical Exam 2 Physical Exam: General-alert and oriented x3, no fever, no chills HEENT-head atraumatic and normocephalic, pupils equal and reactive to light, extraocular muscles intact Neck-no lymphadenopathy or thyromegaly, trachea midline Chest-clear to auscultation. No rales, wheezing or rhonchi Cardiac-regular rate and rhythm, normal S1 and S2 Abdomen-normal bowel sounds, no hepatosplenomegaly Extremities-no cyanosis, clubbing, or edema Neuro-cranial nerves II through XII intact, motor and sensory function within normal limits, strength symmetrical, no focal deficits Psych-normal affect, normal mood Results & Data Results & Data Vital Signs (Past 12 Hours) Vital Signs Temp Pulse Pulse Resp BP Pulse Ox O2 Del Method 12/05/23 10:11 36.8 C 86 23 141/83 H 97 Room Air 12/05/23 07:58 36.7 C 51 L 22 126/76 95 Room Air 12/05/23 07:26 55 L 12/05/23 03:55 36.4 C L 60 18 97 Room Air Laboratory Results 12/05/23 05:43 12/05/23 05:43 PG Care Time/CCT Total # of Minutes Spent Total Time Spent with Patient: Total time spent is greater than 50% in coordination of care (as documented) at patient's floor/unit and/or counseling patient: Coding Level of Care Code 77936 SUB INP/OBS CARE 3/50MIN Diagnoses Pulmonary embolism I26.99 Syncope and collapse R55 Hyperlipidemia E78.5
[2023-12-05] MEDS: APIXABAN 5 MG TABLET PO SCH (11:17)
--- NOTE | 2023-12-05 11:27 | Ultrasound Report ---
ULTRASOUND BILATERAL LOWER EXTREMITY VENOUS CLINICAL HISTORY: Pulmonary embolus. COMPARISON STUDY: No priors. TECHNIQUE: Real-time, grayscale, and color Doppler sonography of the deep veins of the right and left lower extremity was performed from the inguinal crease to the calf. Compression and augmentation wer e utilized. FINDINGS: There is no sonographic evidence of deep venous thrombosis identified in the right or left lower extremity. The common femoral, superficial femoral, and popliteal veins are patent and normally compressible bilaterally. The greater saphenous vein and the profunda femoris vein at the junction w ith the common femoral vein are clear in both legs. The visualized calf veins are patent bilaterally. IMPRESSION: There is no sonographic evidence of deep venous thrombosis identified in the right or lef t lower extremity. ACT 112: Negative or not required by law. Electronically signed by: Laureano Holguin M.D. 12/05/2023 11:26 AM
--- NOTE | 2023-12-05 11:47 | Electrocardiogram Report ---
Test Reason : Blood Pressure : / mmHG Vent. Rate : 077 BPM Atrial Rate : 077 BPM P-R Int : 170 ms QRS Dur : 086 ms QT Int : 396 ms P-R-T Axes : 025 -25 032 degrees QTc Int : 448 ms Normal sinus rhythm T wave abnormality, consider anterior ischemia Abnormal ECG No previous ECGs available Confirmed by Duane Auguste ([id number]) on 12/05/2023 11:47:14 AM Referred By: REFERRED SELF Confirmed By:Duane Auguste
--- NOTE | 2023-12-05 12:08 | XCELERA ---
[id number]
[2023-12-06 06:19] LABS: Basophils # (auto) 0.02 K/uL (0.00-0.20); Basophils % (auto) 0.3 %; Eosinophils # (auto) 0.35 K/uL (0.00-0.50); Eosinophils % (auto) 5.6 %; Hematocrit (blood only) 40.4 % (42.0-52.0); Hemoglobin 13.1 g/dl (14.0-18.0); Immature Granulocytes # (auto) 0.01 K/uL (0.01-0.20); Immature Granulocytes % (auto) 0.2 %; Lymphocytes # (auto) 1.98 K/uL (1.20-3.40); Lymphocytes % (auto) 31.9 %; Mean Corpuscular Hemoglobin 29.9 pg (25.0-34.0); Mean Corpuscular Hgb Conc 32.4 g/dL (32.0-36.0); Mean Corpuscular Volume 92.2 fL (80.0-100.0); Mean Platelet Volume 9.7 fL (9.4-12.4); Monocytes # (auto) 0.61 K/uL (0.11-0.59); Monocytes % (auto) 9.8 %; Neutrophils # (auto) 3.23 K/uL (1.40-6.50); Neutrophils % (auto) 52.2 %; Platelet Count 193 K/uL (130-400); RDW Coefficient of Variation 12.9 % (11.5-14.5); RDW Standard Deviation 43.8 fL (36.4-46.3); Red Blood Count 4.38 M/uL (4.70-6.10)
[2023-12-06 06:27] LABS: BUN Creatinine Ratio 14.4 (10-20); Calcium 8.5 mg/dl (8.6-10.3); Creatinine Clr Calc Pharmacy 69.3 ml/min; Est GFR (African American) 68.6 ml/min; Est GFR (Non-African American) 59.2 ml/min
--- NOTE | 2023-12-06 09:54 | Discharge Summary ---
Date of Service December 06, 2023 Admission HPI Per Admitting Provider 68yo male with history of hyperlipidemia presenting with syncope. Patient is visiting from [place]. [place] when he became acutely dizzy and hot and fell backwards onto the grass, striking his posterior head. He was out several moments then regained consciousness. He denies fever, chills, chest pain, palpitations, cough, SOB, abdominal pain, diarrhea or constipation. He does have some nausea with vomiting as well as some blurry vision and dizziness associated with positional changes and head movement which is slightly improved from earlier. Imaging and workup as below. Labs revealed elevated D-dimer at 650 and CTA of the chest with segmental and subsegmental PE within the branches of the RUL, RML and RLL pulmonary arteries. Patient is active and independent. He swims 1 mile 3 times weekly. He has no prior history of VTE. No known family history of VTE or hypercoagulability. No recent surgery or trauma. He did drive two hours from [place] several days ago otherwise no extended periods of immobility. No leg pain or cramping. He is UTD with his colonoscopies. In the ER he is afebrile, HD stable ER Course: Heparin 7000u bolus and drip Meclizine 25mg PO Zofran 4mg IV NSS x 2L Principal Diagnosis Provoked to multiple right lung pulmonary emboli, syncope with fall, closed head injury with dizziness Discharge Exam General-alert and oriented x3, no fever, no chills HEENT-head atraumatic and normocephalic, pupils equal and reactive to light, extraocular muscles intact Neck-no lymphadenopathy or thyromegaly, trachea midline Chest-clear to auscultation. No rales, wheezing or rhonchi Cardiac-regular rate and rhythm, normal S1 and S2 Abdomen-normal bowel sounds, no hepatosplenomegaly Extremities-no cyanosis, clubbing, or edema Neuro-cranial nerves II through XII intact, motor and sensory function within normal limits, strength symmetrical, no focal deficits Psych-normal affect, normal mood Discharge Data Allergies Allergy/AdvReac Type Severity Reaction Status Date / Time No Known Allergies Allergy Unverified 12/04/23 19:50 Consultations 12/04/23 19:27 ED Decision to Admit Stat Ordered Studies 12/04/23 16:56 CT cervical spine wo con Stat CT head/brain wo con Stat 12/04/23 18:10 CT for pulmonary embolism PE [CT angio chest PE protocol] Stat 12/05/23 07:47 US venous doppler [facility] Urgent Hospital Course (1) Pulmonary embolism: Appears to be provoked from a prolonged car ride from [place]. Cardiac echo report noted. No significant findings. Venous Doppler studies of both legs negative for DVT. Heparin drip has been switched over to Eliquis. Fortunately he is not requiring oxygen. He does not need a hypercoagulable workup at this time since he has no previous history of venous thrombosis. (2) Syncope and collapse: The patient had a syncopal episode probably at the time of the PE. He struck his head but there was no significant findings on his CT scan. He did have transient dizziness with movement but no overt vertigo. This has now resolved. (3) Hyperlipidemia: Stable. Continue statin therapy Plan Home today, December 05, on Eliquis Total Time Total Time Spent Total Time Spent (In Minutes): 45 minutes Discharge Plan Discharge Items Patient Disposition: Home - Self-Care Reason For Visit: SYNCOPE Discharge Diagnosis: Provoked PE right lung, syncope, mechanical fall with closed head injury and dizziness Activity: Resume your previous activity Non-emergency contact: Primary Care Provider Call non-emergency contact if: you have any medication questions and your symptoms worsen Follow-up/Referrals: Jairon Lambert MD [Primary Care Provider] - Diet: Regular and Heart Healthy Addtl Attending Provider Instructions: Take Eliquis 10 mg twice daily for 1 week then 5 mg twice daily after that. See primary care provider soon as possible Pending Studies at Discharge: No Stand-Alone Forms: [facility], Smoking Cessation Medications and DC Order Prescriptions: New Eliquis 5 mg Tablet 10 mg PO BID Qty: 0 0RF Continued atorvastatin 10 mg Tablet 10 mg PO HS acetaminophen [Tylenol Ex Str Rapid Release] 500 mg Tablet 500 mg PO Q6H PRN (Reason: Pain) Discharge Orders: Discharge Order (Routine); Ordered 12/06/23 Ordered By: Seferino Perry Admission Data Admit Date/Time: 12/04/23 19:38 Attending Provider: Seferino Perry Admit Provider: Kristi Dennis Primary Care Provider: Jairon Lambert Other Providers: Kristi Dennis Coding Level of Care Code 91792 INP/OBS DISCH >30 MIN Diagnoses Pulmonary embolism I26.99 Syncope and collapse R55 Hyperlipidemia E78.5
== END 2023-12-06 12:04 | disposition home or self-care (01) | DRG 176 ==
LOC: ED 16:40 → 2E 19:38 → SUATTDRO 19:38 → 2E 21:05